=== PATIENT | male | born 1940 | race Caucasian/White ===

== ENCOUNTER 2021-01-20 20:44 | Observation (INO) ==
[2021-01-20] MEDS ORDERED: Aspirin 81 MG TAB.CHEW PO ONE (20:52)
[2021-01-20] MEDS ORDERED: Nitroglycerin 0.4 MG TAB.SUBL SL PRN (20:52)
[2021-01-21] MEDS ORDERED: Naloxone 0.4 MG/ML INJ IVP PRN (00:04)
[2021-01-21] MEDS ORDERED: Perflutren Lipid Microsphere 1.3 ML in 0.9 % Sodium Chloride 8.7 ML IVP PRN (00:08)
[2021-01-21] MEDS ORDERED: D5% in Water 1,000 ML IVC PRN (00:10)
[2021-01-21] MEDS ORDERED: *HR* Dextrose 50 % in Water (Vial) 50 ML VIAL IVP PRN (00:10)
[2021-01-21] MEDS ORDERED: Dextrose Gel 15 GM/37.5 ML TUBE PO PRN ×2 (00:10)
[2021-01-21] MEDS: Ondansetron 4 MG/2 ML VIAL IVP PRN ×2 (02:04→14:50)
[2021-01-21 07:01] LABS: Basophils # 0.1 K/mcL (0.0-0.2); Basophils % 0.8 %; Eosinophils # 0.1 K/mcL (0.0-0.6); Hematocrit 38.2 % (37.5-50.1); Hemoglobin 12.4 g/dL (12.9-16.9); Immature Granulocytes % 0.3 % (0-4); Lymphocytes # 0.5 K/mcL (0.6-4.6); Lymphocytes % 8.3 %; Mean Corpuscular HGB Conc 32.5 g/dL (31.6-35.5); Mean Corpuscular Hemoglobin 28.9 pg (28.0-33.3); Monocytes # 0.4 K/mcL (0.0-1.3); Monocytes % 6.5 %; Neutrophils # 5.1 K/mcL (1.6-8.9); Platelet Count 142 K/mcL (140-400); Red Blood Count 4.29 M/mcL (4.19-5.50); Red Cell Distribution Width 12.3 % (11.5-14.5); Segmented Neutrophils % 83.1 %; White Blood Count 6.1 K/mcL (4.3-11.1)
[2021-01-21 07:19] LABS: BUN/Creatinine Ratio 18 (6-26); Blood Urea Nitrogen 21 mg/dL (8-23); Calcium 8.7 mg/dL (8.6-10.3); Carbon Dioxide 23 mEq/L (23-29); Chloride 101 mEq/L (98-107); Chol/HDL Ratio 5.7 (0-4.9); Cholesterol 193 mg/dL (< 200); Glucose 311 mg/dL (70-105); HDL Cholesterol 34 mg/dL (40-59); LDL Cholesterol,Calculated 115 mg/dL (< 100); Osmolality,Calculated 289 (280-300); Potassium 4.4 mEq/L (3.5-5.1); Sodium 132 mEq/L (136-145); Triglycerides 219 mg/dL (< 150); Troponin I < 0.03 ng/mL (< 0.04); eGFR For African Americans > 60 (> 60); eGFR For Non-African Americans > 60 (> 60)
[2021-01-21] MEDS: Insulin LISPRO 300 UNITS/3 ML VIAL SUBQ SCH ×3 (08:26→17:09)
[2021-01-21] MEDS: Aspirin 81 MG TAB.CHEW PO SCH (08:26)
[2021-01-21] MEDS: lisinopriL 5 MG TABLET PO SCH (08:26)
[2021-01-21 09:15] LABS: Estimated Average Glucose 358 mg/dl; Hemoglobin A1C 14.1 %
[2021-01-21 15:20] LABS: Folate 19.9 ng/mL (3.0-16.0)
[2021-01-21] MEDS ORDERED: Insulin LISPRO 300 UNITS/3 ML VIAL SUBQ SCH (21:00)
[2021-01-22 02:56] LABS: BUN/Creatinine Ratio 20 (6-26); Blood Urea Nitrogen 24 mg/dL (8-23); Calcium 8.6 mg/dL (8.6-10.3); Carbon Dioxide 25 mEq/L (23-29); Chloride 104 mEq/L (98-107); Glucose 207 mg/dL (70-105); Osmolality,Calculated 292 (280-300); Potassium 3.9 mEq/L (3.5-5.1); Sodium 136 mEq/L (136-145); eGFR For African Americans > 60 (> 60); eGFR For Non-African Americans 60 (> 60)
[2021-01-22] MEDS: Insulin LISPRO 300 UNITS/3 ML VIAL SUBQ SCH (09:51)
[2021-01-22] MEDS: lisinopriL 5 MG TABLET PO SCH (09:52)
[2021-01-22] MEDS: Aspirin 81 MG TAB.CHEW PO SCH (09:52)
[2021-01-22] MEDS ORDERED: Sennosides/Docusate Sodium TABLET PO PRN (10:34)
[2021-01-22 11:24] VITALS: BP 102/62
[2021-01-22 11:46] LABS: Bilirubin,Urine Negative (Negative); Blood,Urine Negative (Negative); Clarity,Urine Clear (Clear); Color,Urine Light-Yellow (Yellow); Glucose,Urine (UA) >=1000 mg/dL (Normal); Ketones,Urine Negative (Negative); Leukocyte Esterase,Urine Negative (Negative); Nitrite,Urine Negative (Negative); Protein,Urine Trace mg/dL (Neg-Trace); Specific Gravity,Urine 1.023 (1.010-1.025); Urobilinogen,Urine Normal (Normal)
[2021-01-22 11:48] LABS: Amphetamine Screen,Urine Negative ng/mL (Cutoff=1000); Barbiturate Screen,Urine Negative ng/mL (Cutoff=200); Benzodiazepines Screen,Urine Negative ng/mL (Cutoff=200); Cannabinoid Screen,Urine Negative ng/mL (Cutoff = 50); Cocaine Screen,Urine Negative ng/mL (Cutoff= 300); Opiate Screen,Urine Negative ng/mL (Cutoff=300); Phencyclidine Screen,Urine Negative ng/mL (Cutoff=25)
== END 2021-01-22 11:15 | disposition home or self-care (01) ==
LOC: EMEROOARM 20:44 → 2ANU 20:44 → SUATTDRO 23:17 → 2ANU 01-21 00:07
PROVIDERS: ADMIT Family Medicine; ATTEND Student in an Organized Health Care Education/Training Program

== ENCOUNTER 2021-11-11 16:05 | Inpatient (IN) ==
[2021-11-11 18:10] LABS: Basophils # 0.1 K/mcL (0.0-0.2); Basophils % 0.5 %; Eosinophils # 0.1 K/mcL (0.0-0.6); Eosinophils % 1.2 %; Hematocrit 36.4 % (37.5-50.1); Hemoglobin 11.8 g/dL (12.9-16.9); Immature Granulocytes % 0.4 % (0-4); Lymphocytes # 0.6 K/mcL (0.6-4.6); Lymphocytes % 6.5 %; Mean Corpuscular HGB Conc 32.4 g/dL (31.6-35.5); Mean Corpuscular Hemoglobin 29.1 pg (28.0-33.3); Mean Corpuscular Volume 89.7 fL (83.0-100.0); Mean Platelet Volume 9.5 fL (9.4-12.4); Monocytes # 0.5 K/mcL (0.0-1.3); Monocytes % 5.8 %; Platelet Count 235 K/mcL (140-400); Red Blood Count 4.06 M/mcL (4.19-5.50); Red Cell Distribution Width 13.2 % (11.5-14.5); Segmented Neutrophils % 85.6 %; White Blood Count 9.3 K/mcL (4.3-11.1)
[2021-11-11 18:17] LABS: Prothrombin Time 11.5 Seconds (9.4-12.1)
[2021-11-11 18:20] LABS: Activated Partial Thrombo Time 33.6 Seconds (26.0-36.0)
[2021-11-11 18:30] LABS: BUN/Creatinine Ratio 22 (6-26); Blood Urea Nitrogen 28 mg/dL (8-23); Calcium 9.3 mg/dL (8.6-10.3); Carbon Dioxide 28 mEq/L (23-29); Chloride 101 mEq/L (98-107); Glucose 164 mg/dL (70-105); Osmolality,Calculated 295 (280-300); Potassium 4.6 mEq/L (3.5-5.1); Sodium 138 mEq/L (136-145); eGFR For African Americans > 60 (> 60); eGFR For Non-African Americans 54 (> 60)
[2021-11-11] MEDS ORDERED: Naloxone 0.4 MG/ML INJ IVP PRN (18:32)
[2021-11-11] MEDS ORDERED: D5% in Water 1,000 ML IVC PRN (18:50)
[2021-11-11] MEDS ORDERED: Dextrose 4 GM Chewable Tablets PO PRN ×2 (18:50)
[2021-11-11] MEDS ORDERED: *HR* Dextrose 50 % in Water (Syg) 50 ML SYRINGE IVP PRN (18:50)
[2021-11-11] MEDS ORDERED: *HR* LORazepam 2 MG/ML VIAL IVP ONE (18:52)
[2021-11-11] MEDS ORDERED: 0.9 % Sodium Chloride 1,000 ML IVC SCH (22:00)
[2021-11-12] MEDS: Insulin LISPRO 300 UNITS/3 ML VIAL SUBQ SCH ×4 (01:01→18:18)
[2021-11-12 01:32] LABS: Bilirubin,Urine Negative (Negative); Blood,Urine Small (Negative); Clarity,Urine Clear (Clear); Color,Urine Light-Yellow (Yellow); Glucose,Urine (UA) >=1000 mg/dL (Normal); Ketones,Urine Negative (Negative); Leukocyte Esterase,Urine Negative (Negative); Nitrite,Urine Negative (Negative); PH,Urine 6.5 pH Units (5.0-8.0); Protein,Urine Trace mg/dL (Neg-Trace); RBC,Urine 15-30 per hpf (0-3); Squamous Epithelial Cell,Urine Few per hpf (None-Few); Urobilinogen,Urine Normal (Normal); WBC,Urine 0-3 per hpf (0-3)
[2021-11-12 03:59] LABS: Hematocrit 36.2 % (37.5-50.1); Hemoglobin 11.6 g/dL (12.9-16.9); Mean Corpuscular Volume 90.5 fL (83.0-100.0); Mean Platelet Volume 9.7 fL (9.4-12.4); Platelet Count 224 K/mcL (140-400); Red Cell Distribution Width 13.2 % (11.5-14.5); White Blood Count 9.4 K/mcL (4.3-11.1)
[2021-11-12 04:08] LABS: BUN/Creatinine Ratio 21 (6-26); Blood Urea Nitrogen 25 mg/dL (8-23); Calcium 9.2 mg/dL (8.6-10.3); Carbon Dioxide 27 mEq/L (23-29); Chloride 106 mEq/L (98-107); Glucose 221 mg/dL (70-105); Magnesium 1.6 mg/dL (1.6-2.6); Osmolality,Calculated 301 (280-300); Phosphorous 2.7 mg/dL (2.7-4.5); Potassium 4.8 mEq/L (3.5-5.1); Sodium 140 mEq/L (136-145); eGFR For African Americans > 60 (> 60); eGFR For Non-African Americans 58 (> 60)
[2021-11-12 04:11] LABS: INR 1.1; Prothrombin Time 12.4 Seconds (9.4-12.1)
[2021-11-12 04:13] LABS: Activated Partial Thrombo Time 31.5 Seconds (26.0-36.0)
[2021-11-12] MEDS: Multivit/Ca/Min/Fe/FA 1 TAB TABLET PO SCH (09:01)
[2021-11-12] MEDS: Chlorhexidine Rinse 15 ML MOUTHWASH MM SCH ×2 (10:25→21:19)
[2021-11-12] MEDS ORDERED: Ondansetron 4 MG/2 ML VIAL ONE (12:41)
[2021-11-12] MEDS ORDERED: *HR* FentaNYL (PF) 100 MCG/2 ML VIAL ONE (12:41)
[2021-11-12] MEDS ORDERED: Lidocaine HCL 4 ML Topical Solution (Laryng-O-Jet Kit Sterile Pak) TP ONE (12:41)
[2021-11-12] MEDS ORDERED: *HR* Propofol 200 MG/20 ML VIAL IVP ONE (12:41)
[2021-11-12] MEDS ORDERED: Lidocaine -MPF 2% 5 ML VIAL ONE (12:41)
[2021-11-12] MEDS ORDERED: *HR* Rocuronium Bromide 50 MG/5 ML VIAL ONE (12:41)
[2021-11-12] MEDS ORDERED: Acetaminophen IV 1,000 MG/100 ML BAG IVPB ONE (12:57)
[2021-11-12] MEDS ORDERED: Famotidine 20 MG/2 ML VIAL IVP ONE (12:57)
[2021-11-12] MEDS ORDERED: CeFAZolin Syr 2,000MG/20 ML 2,000 MG/20 ML SYRINGE IVPB ONE (13:14)
[2021-11-12] MEDS ORDERED: *HR* OxyCODONE Immed Rel 5 MG TABLET PO PRN (14:34)
[2021-11-12] MEDS ORDERED: Morphine Sulfate 2 MG/ML SYRINGE IVP PRN (14:34)
[2021-11-12] MEDS ORDERED: Ondansetron 4 MG/2 ML VIAL IVP PRN (14:34)
[2021-11-12] MEDS ORDERED: *HR* LORazepam 2 MG/ML VIAL IVP ONE (18:00)
[2021-11-12] MEDS ORDERED: Haloperidol Lactate 5 MG/ML VIAL IVP ONE (19:10)
[2021-11-12] MEDS: Ringers Solution, Lactated 1,000 ML IVC SCH (19:23)
[2021-11-12] MEDS: CeFAZolin 2 GM/100 ML BAG IVPB SCH (21:18)
[2021-11-12] MEDS: QUEtiapine Fumarate 25 MG TABLET PO SCH (22:01)
[2021-11-13] MEDS: Insulin LISPRO 300 UNITS/3 ML VIAL SUBQ SCH ×4 (00:16→18:21)
[2021-11-13] MEDS: CeFAZolin 2 GM/100 ML BAG IVPB SCH (05:39)
[2021-11-13] MEDS: *HR* Enoxaparin 40 MG/0.4 ML SYRINGE SQ SCH (05:39)
[2021-11-13 05:47] LABS: Hematocrit 31.9 % (37.5-50.1); Hemoglobin 10.4 g/dL (12.9-16.9); Mean Corpuscular HGB Conc 32.6 g/dL (31.6-35.5); Mean Corpuscular Hemoglobin 29.5 pg (28.0-33.3); Mean Corpuscular Volume 90.4 fL (83.0-100.0); Platelet Count 213 K/mcL (140-400); Red Blood Count 3.53 M/mcL (4.19-5.50); Red Cell Distribution Width 13.2 % (11.5-14.5); White Blood Count 10.1 K/mcL (4.3-11.1)
[2021-11-13] MEDS: Multivit/Ca/Min/Fe/FA 1 TAB TABLET PO SCH (07:56)
[2021-11-13] MEDS: Chlorhexidine Rinse 15 ML MOUTHWASH MM SCH ×2 (07:56→19:58)
[2021-11-13] MEDS: QUEtiapine Fumarate 25 MG TABLET PO SCH (19:57)
[2021-11-13] MEDS ORDERED: Ondansetron 4 MG/2 ML VIAL IVP PRN (21:24)
[2021-11-13] MEDS ORDERED: Pantoprazole 40 MG VIAL IVP ONE (21:30)
[2021-11-13 21:58] LABS: Hematocrit 32.6 % (37.5-50.1); Hemoglobin 10.5 g/dL (12.9-16.9)
[2021-11-14 02:29] LABS: Hematocrit 31.2 % (37.5-50.1); Mean Corpuscular HGB Conc 32.1 g/dL (31.6-35.5); Mean Corpuscular Hemoglobin 29.6 pg (28.0-33.3); Mean Corpuscular Volume 92.3 fL (83.0-100.0); Platelet Count 220 K/mcL (140-400); Red Blood Count 3.38 M/mcL (4.19-5.50); Red Cell Distribution Width 13.1 % (11.5-14.5)
[2021-11-14 02:38] LABS: BUN/Creatinine Ratio 23 (6-26); Blood Urea Nitrogen 23 mg/dL (8-23); Carbon Dioxide 25 mEq/L (23-29); Chloride 102 mEq/L (98-107); Glucose 235 mg/dL (70-105); Osmolality,Calculated 295 (280-300); Potassium 4.5 mEq/L (3.5-5.1); Sodium 137 mEq/L (136-145); eGFR For African Americans > 60 (> 60); eGFR For Non-African Americans > 60 (> 60)
[2021-11-14] MEDS: *HR* Enoxaparin 40 MG/0.4 ML SYRINGE SQ SCH (07:10)
[2021-11-14] MEDS: Multivit/Ca/Min/Fe/FA 1 TAB TABLET PO SCH (10:42)
[2021-11-14] MEDS: Chlorhexidine Rinse 15 ML MOUTHWASH MM SCH ×2 (10:43→20:20)
[2021-11-14] MEDS: Insulin LISPRO 300 UNITS/3 ML VIAL SUBQ SCH ×4 (10:43→19:30)
[2021-11-14] MEDS ORDERED: Ketorolac 30 MG/ML VIAL IVP ONE (15:23)
[2021-11-14] MEDS: Ringers Solution, Lactated 1,000 ML IVC SCH (19:30)
[2021-11-14] MEDS: Melatonin 3 MG TABLET PO PRN (20:20)
[2021-11-14] MEDS: QUEtiapine Fumarate 25 MG TABLET PO SCH (20:20)
[2021-11-15] MEDS: Insulin LISPRO 300 UNITS/3 ML VIAL SUBQ SCH ×4 (00:07→16:54)
[2021-11-15] MEDS: *HR* Enoxaparin 40 MG/0.4 ML SYRINGE SQ SCH (05:58)
[2021-11-15] MEDS: Chlorhexidine Rinse 15 ML MOUTHWASH MM SCH ×2 (09:24→20:57)
[2021-11-15] MEDS: Multivit/Ca/Min/Fe/FA 1 TAB TABLET PO SCH (09:24)
[2021-11-15] MEDS: Ringers Solution, Lactated 1,000 ML IVC SCH (12:25)
[2021-11-15] MEDS ORDERED: Acetaminophen IV 1,000 MG/100 ML BAG IVPB ONE (13:15)
[2021-11-15] MEDS ORDERED: Haloperidol Lactate 5 MG/ML VIAL IVP ONE (17:32)
[2021-11-15] MEDS ORDERED: Ketorolac 30 MG/ML VIAL IVP ONE (18:05)
[2021-11-15] MEDS: Melatonin 3 MG TABLET PO PRN (20:57)
[2021-11-15] MEDS: QUEtiapine Fumarate 25 MG TABLET PO SCH (20:57)
[2021-11-15] MEDS: Sennosides/Docusate Sodium TABLET PO SCH ×2 (20:57→21:30)
[2021-11-15] MEDS ORDERED: Famotidine 20 MG TABLET PO SCH (21:00)
[2021-11-16] MEDS: Insulin LISPRO 300 UNITS/3 ML VIAL SUBQ SCH ×4 (00:16→18:13)
[2021-11-16 05:29] LABS: Basophils # 0.1 K/mcL (0.0-0.2); Eosinophils # 0.5 K/mcL (0.0-0.6); Eosinophils % 9.1 %; Hematocrit 24.8 % (37.5-50.1); Lymphocytes % 18.7 %; Mean Corpuscular HGB Conc 33.1 g/dL (31.6-35.5); Mean Corpuscular Hemoglobin 28.9 pg (28.0-33.3); Mean Corpuscular Volume 87.3 fL (83.0-100.0); Mean Platelet Volume 9.9 fL (9.4-12.4); Monocytes # 0.6 K/mcL (0.0-1.3); Monocytes % 10.8 %; Platelet Count 194 K/mcL (140-400); Red Blood Count 2.84 M/mcL (4.19-5.50); Red Cell Distribution Width 12.6 % (11.5-14.5); Segmented Neutrophils % 59.4 %
[2021-11-16 05:39] LABS: Hemoglobin 8.2 g/dL (12.9-16.9); White Blood Count 5.1 K/mcL (4.3-11.1)
[2021-11-16] MEDS: *HR* Enoxaparin 40 MG/0.4 ML SYRINGE SQ SCH (05:54)
[2021-11-16 05:57] LABS: BUN/Creatinine Ratio 31 (6-26); Blood Urea Nitrogen 37 mg/dL (8-23); Calcium 8.7 mg/dL (8.6-10.3); Carbon Dioxide 26 mEq/L (23-29); Chloride 101 mEq/L (98-107); Magnesium 1.8 mg/dL (1.6-2.6); Potassium 3.7 mEq/L (3.5-5.1); Sodium 137 mEq/L (136-145); eGFR For African Americans > 60 (> 60); eGFR For Non-African Americans 58 (> 60)
[2021-11-16 06:03] LABS: Thyroid Stimulating Hormone 0.447 mcIU/mL (0.340-5.600)
[2021-11-16] MEDS ORDERED: Pantoprazole 40 MG VIAL IVP ONE (07:24)
[2021-11-16 08:47] LABS: Glucose 94 mg/dL (70-105); Osmolality,Calculated 292 (280-300)
[2021-11-16] MEDS: Chlorhexidine Rinse 15 ML MOUTHWASH MM SCH ×2 (09:06→20:04)
[2021-11-16] MEDS: QUEtiapine Fumarate 25 MG TABLET PO SCH ×2 (09:06→19:56)
[2021-11-16] MEDS: Sennosides/Docusate Sodium TABLET PO SCH ×2 (09:16→19:57)
[2021-11-16] MEDS: Multivit/Ca/Min/Fe/FA 1 TAB TABLET PO SCH (09:17)
[2021-11-16] MEDS: Famotidine 20 MG TABLET PO SCH (09:22)
[2021-11-16 11:16] LABS: Estimated Average Glucose 163 mg/dl; Hemoglobin A1C 7.3 %
[2021-11-16] MEDS: Ringers Solution, Lactated 1,000 ML IVC SCH (13:00)
[2021-11-17] MEDS: Insulin LISPRO 300 UNITS/3 ML VIAL SUBQ SCH ×3 (02:05→14:20)
[2021-11-17] MEDS: *HR* Enoxaparin 40 MG/0.4 ML SYRINGE SQ SCH (05:45)
[2021-11-17 06:32] LABS: Basophils # 0.1 K/mcL (0.0-0.2); Basophils % 1.9 %; Eosinophils # 0.4 K/mcL (0.0-0.6); Eosinophils % 7.5 %; Hemoglobin 9.1 g/dL (12.9-16.9); Immature Granulocytes % 1.1 % (0-4); Lymphocytes % 21.1 %; Mean Corpuscular HGB Conc 32.5 g/dL (31.6-35.5); Mean Corpuscular Hemoglobin 29.5 pg (28.0-33.3); Mean Corpuscular Volume 90.9 fL (83.0-100.0); Mean Platelet Volume 9.5 fL (9.4-12.4); Monocytes # 0.5 K/mcL (0.0-1.3); Monocytes % 11.3 %; Neutrophils # 2.7 K/mcL (1.6-8.9); Platelet Count 217 K/mcL (140-400); Red Blood Count 3.08 M/mcL (4.19-5.50); Red Cell Distribution Width 12.9 % (11.5-14.5); Segmented Neutrophils % 57.1 %; White Blood Count 4.7 K/mcL (4.3-11.1)
[2021-11-17 06:59] LABS: BUN/Creatinine Ratio 22 (6-26); Blood Urea Nitrogen 23 mg/dL (8-23); Calcium 8.7 mg/dL (8.6-10.3); Carbon Dioxide 24 mEq/L (23-29); Chloride 103 mEq/L (98-107); Glucose 191 mg/dL (70-105); Magnesium 1.8 mg/dL (1.6-2.6); Osmolality,Calculated 291 (280-300); Potassium 4.1 mEq/L (3.5-5.1); Sodium 136 mEq/L (136-145); eGFR For African Americans > 60 (> 60); eGFR For Non-African Americans > 60 (> 60)
[2021-11-17] MEDS ORDERED: polyethylene glycoL 3350 17 GM POWD.PACK PO SCH (09:00)
[2021-11-17] MEDS: Multivit/Ca/Min/Fe/FA 1 TAB TABLET PO SCH (09:11)
[2021-11-17] MEDS: QUEtiapine Fumarate 25 MG TABLET PO SCH (09:11)
[2021-11-17] MEDS: Sennosides/Docusate Sodium TABLET PO SCH (09:12)
[2021-11-17] MEDS: Famotidine 20 MG TABLET PO SCH (09:13)
[2021-11-17] MEDS: Chlorhexidine Rinse 15 ML MOUTHWASH MM SCH (09:13)
[2021-11-17 11:39] VITALS: BP 166/75; PULSE 83; TEMP 97.6; O2SAT 95
[2021-11-17] MEDS ORDERED: Ketorolac 30 MG/ML VIAL IVP ONE (14:25)
[2021-11-17 14:59] LABS: Adenovirus Not Detected (Not Detect); Bordetella Pertussis Not Detected (Not Detect); Chlamydophila pneumoniae Not Detected (Not Detect); Coronavirus 229E Not Detected (Not Detect); Coronavirus HKU1 Not Detected (Not Detect); Coronavirus NL63 Not Detected (Not Detect); Coronavirus OC43 Not Detected (Not Detect); Human Metapneumovirus Not Detected (Not Detect); Human Rhinovirus/Enterovirus Not Detected (Not Detect); Influenza A Subtype 2009 H1 Not Detected (Not Detect); Influenza B Not Detected (Not Detect); Mycoplasma pneumoniae Not Detected (Not Detect); Parainfluenza Virus 1 Not Detected (Not Detect); Parainfluenza Virus 2 Not Detected (Not Detect); Parainfluenza Virus 3 Not Detected (Not Detect); Parainfluenza Virus 4 Not Detected (Not Detect); Respiratory Syncytial Virus Not Detected (Not Detect); SARS-CoV-2 Not Detected (Not Detect)
[2021-11-17] MEDS: Ringers Solution, Lactated 1,000 ML IVC SCH (15:14)
== END 2021-11-17 15:50 | DRG 480 ==
LOC: EMEROOARM 16:05 → 4WAOSI 16:05 → SUATTDRO 19:15 → 4WAOSI 20:33
PROVIDERS: ADMIT Internal Medicine; ATTEND Pharmacist

== ENCOUNTER 2022-03-09 07:41 | Inpatient (IN) ==
[2022-03-09] MEDS ORDERED: Iopamidol - 370 500 ML MLS IVP ONE (07:49)
[2022-03-09 08:19] LABS: Basophils % 0.5 %; Eosinophils % 0.2 %; Red Cell Distribution Width 14.4 % (11.5-14.5)
[2022-03-09 08:20] LABS: Basophils # 0.1 K/mcL (0.0-0.2); Hemoglobin 6.5 g/dL (12.9-16.9); Immature Granulocytes % 0.4 % (0-4); Lymphocytes # 0.9 K/mcL (0.6-4.6); Lymphocytes % 8.2 %; Mean Corpuscular HGB Conc 28.3 g/dL (31.6-35.5); Mean Corpuscular Hemoglobin 23.6 pg (28.0-33.3); Mean Corpuscular Volume 83.3 fL (83.0-100.0); Mean Platelet Volume 9.9 fL (9.4-12.4); Monocytes # 0.6 K/mcL (0.0-1.3); Monocytes % 5.8 %; Platelet Count 401 K/mcL (140-400); Red Blood Count 2.76 M/mcL (4.19-5.50); Segmented Neutrophils % 84.9 %; White Blood Count 10.6 K/mcL (4.3-11.1)
[2022-03-09 08:26] LABS: INR 1.2; Prothrombin Time 13.9 Seconds (9.4-12.1)
[2022-03-09] MEDS ORDERED: 0.9 % Sodium Chloride 500 ML IVC ONE (08:36)
[2022-03-09 08:40] LABS: BUN/Creatinine Ratio 27 (6-26); Blood Urea Nitrogen 34 mg/dL (8-23); Calcium 8.8 mg/dL (8.6-10.3); Carbon Dioxide 22 mEq/L (23-29); Chloride 107 mEq/L (98-107); Glucose 275 mg/dL (70-105); Osmolality,Calculated 311 (280-300); Potassium 4.3 mEq/L (3.5-5.1); Sodium 142 mEq/L (136-145); eGFR For African Americans > 60 (> 60); eGFR For Non-African Americans 56 (> 60)
[2022-03-09 08:41] LABS: Troponin I < 0.03 ng/mL (< 0.04)
[2022-03-09 09:03] LABS: Influenza A PCR Negative (Negative); Influenza B PCR Negative (Negative); Resp. Syncytial Virus PCR Negative (Negative)
[2022-03-09 09:04] LABS: SARS-CoV-2 by PCR (In House) Negative (Negative)
[2022-03-09 10:11] LABS: Platelet Estimate Increased (Normal)
[2022-03-09 10:12] LABS: Anisocytosis 1+ (Not Present); Hypochromasia Present (Not Present); Poikilocytosis 1+ (Not Present)
[2022-03-09] MEDS ORDERED: Dextrose Gel 15 GM/37.5 ML TUBE PO PRN ×2 (11:13)
[2022-03-09] MEDS ORDERED: Naloxone 0.4 MG/ML INJ IVP PRN (11:13)
[2022-03-09] MEDS ORDERED: D5% in Water 1,000 ML IVC PRN (11:13)
[2022-03-09] MEDS ORDERED: Ondansetron 4 MG/2 ML VIAL IVP PRN (11:13)
[2022-03-09] MEDS ORDERED: *HR* Dextrose 50 % in Water (Syg) 50 ML SYRINGE IVP PRN (11:13)
[2022-03-09] MEDS ORDERED: 0.9 % Sodium Chloride 250 ML ONE (12:11)
[2022-03-09] MEDS: Ringers Solution, Lactated 1,000 ML IVC SCH (15:03)
[2022-03-09] MEDS: Insulin LISPRO 300 UNITS/3 ML VIAL SUBQ SCH ×2 (15:03→18:49)
[2022-03-09] MEDS: Pantoprazole 40 MG VIAL IVP SCH (17:14)
[2022-03-09] MEDS ORDERED: *HR* LORazepam 1 MG TABLET PO PRN (22:40)
[2022-03-09] MEDS ORDERED: Haloperidol Lactate 5 MG/ML VIAL IM PRN (22:40)
[2022-03-10] MEDS: OLANZapine 5 MG TAB.RAPDIS PO SCH ×2 (01:06→20:43)
[2022-03-10] MEDS: haloperidoL 1 MG TABLET PO SCH ×8 (01:06→22:56)
[2022-03-10] MEDS: Insulin LISPRO 300 UNITS/3 ML VIAL SUBQ SCH ×5 (01:40→22:59)
[2022-03-10 02:03] LABS: Immature Granulocytes % 0.7 % (0-4); Red Cell Distribution Width 14.6 % (11.5-14.5)
[2022-03-10 02:08] LABS: Basophils # 0.1 K/mcL (0.0-0.2); Basophils % 0.5 %; Eosinophils # 0.1 K/mcL (0.0-0.6); Eosinophils % 0.7 %; Hemoglobin 7.2 g/dL (12.9-16.9); Lymphocytes # 1.3 K/mcL (0.6-4.6); Lymphocytes % 12.9 %; Mean Corpuscular HGB Conc 32.7 g/dL (31.6-35.5); Mean Corpuscular Hemoglobin 25.7 pg (28.0-33.3); Mean Corpuscular Volume 78.6 fL (83.0-100.0); Mean Platelet Volume 10.8 fL (9.4-12.4); Monocytes # 1.1 K/mcL (0.0-1.3); Monocytes % 10.8 %; Neutrophils # 7.5 K/mcL (1.6-8.9); Nucleated Red Blood Cells 0.3 /100 WBC (0); Platelet Count 305 K/mcL (140-400); Segmented Neutrophils % 74.4 %; White Blood Count 10.1 K/mcL (4.3-11.1)
[2022-03-10 02:15] LABS: Alanine Aminotransferase 7 Units/L (7-52); Albumin 2.8 g/dL (3.5-5.7); Albumin/Globulin Ratio 1.5 (1.1-2.2); Alkaline Phosphatase 41 Units/L (34-104); Aspartate Amino Transferase 13 Units/L (13-39); BUN/Creatinine Ratio 45 (6-26); Bilirubin,Total 0.7 mg/dL (0.3-1.0); Blood Urea Nitrogen 45 mg/dL (8-23); Calcium 8.1 mg/dL (8.6-10.3); Carbon Dioxide 19 mEq/L (23-29); Chloride 117 mEq/L (98-107); Glucose 220 mg/dL (70-105); Osmolality,Calculated 314 (280-300); Potassium 4.7 mEq/L (3.5-5.1); Sodium 143 mEq/L (136-145); Total Protein 4.7 g/dL (6.4-8.9); eGFR For African Americans > 60 (> 60); eGFR For Non-African Americans > 60 (> 60)
[2022-03-10 02:16] LABS: Globulin 1.9 g/dL (2.4-3.5)
[2022-03-10 02:37] LABS: Hypochromasia Present (Not Present); Platelet Clumps Few (Not Present); Platelet Estimate Normal (Normal); Polychromasia 1+ (Not Present)
[2022-03-10 02:38] LABS: Anisocytosis 1+ (Not Present); Microcytosis Present (Not Present)
[2022-03-10] MEDS ORDERED: 0.9 % Sodium Chloride 250 ML ONE (03:31)
[2022-03-10] MEDS: Ringers Solution, Lactated 1,000 ML IVC SCH (04:47)
[2022-03-10] MEDS: Pantoprazole 40 MG VIAL IVP SCH ×2 (06:17→18:34)
[2022-03-10] MEDS ORDERED: *HR* Succinylcholine 200 MG/10 ML VIAL IVP ONE (07:40)
[2022-03-10] MEDS ORDERED: Lidocaine HCL 4 ML Topical Solution (Laryng-O-Jet Kit Sterile Pak) TP ONE (07:40)
[2022-03-10] MEDS ORDERED: Ondansetron 4 MG/2 ML VIAL ONE (07:40)
[2022-03-10] MEDS ORDERED: Lidocaine -MPF 2% 5 ML VIAL ONE (07:40)
[2022-03-10] MEDS ORDERED: *HR* Propofol 200 MG/20 ML VIAL IVP ONE (07:41)
[2022-03-10] MEDS ORDERED: *HR* FentaNYL (PF) 100 MCG/2 ML VIAL ONE (09:54)
[2022-03-10] MEDS: ALOGLIPTIN BENZOATE 12.5 MG PO SCH (10:07)
[2022-03-10] MEDS: Cholecalciferol (D-3) 1,000 UNIT (25MCG) TABLET PO SCH ×2 (11:20→11:33)
[2022-03-10 16:10] LABS: Hematocrit 37.4 % (37.5-50.1); Hemoglobin 10.4 g/dL (12.9-16.9)
[2022-03-10] MEDS: Melatonin 3 MG TABLET PO SCH (20:43)
[2022-03-11] MEDS: haloperidoL 1 MG TABLET PO SCH ×6 (03:53→18:03)
[2022-03-11] MEDS: Pantoprazole 40 MG VIAL IVP SCH ×2 (06:23→18:03)
[2022-03-11 07:22] LABS: Hematocrit 24.2 % (37.5-50.1); Hemoglobin 7.5 g/dL (12.9-16.9); Mean Corpuscular Hemoglobin 25.6 pg (28.0-33.3); Mean Corpuscular Volume 82.6 fL (83.0-100.0); Mean Platelet Volume 10.3 fL (9.4-12.4); Platelet Count 246 K/mcL (140-400); Red Blood Count 2.93 M/mcL (4.19-5.50); Red Cell Distribution Width 14.6 % (11.5-14.5); White Blood Count 5.1 K/mcL (4.3-11.1)
[2022-03-11 07:40] LABS: BUN/Creatinine Ratio 27 (6-26); Blood Urea Nitrogen 28 mg/dL (8-23); Calcium 8.5 mg/dL (8.6-10.3); Carbon Dioxide 23 mEq/L (23-29); Chloride 111 mEq/L (98-107); Glucose 157 mg/dL (70-105); Osmolality,Calculated 299 (280-300); Potassium 4.2 mEq/L (3.5-5.1); Sodium 140 mEq/L (136-145); eGFR For African Americans > 60 (> 60); eGFR For Non-African Americans > 60 (> 60)
[2022-03-11] MEDS: Insulin LISPRO 300 UNITS/3 ML VIAL SUBQ SCH ×4 (10:37→20:32)
[2022-03-11] MEDS: ALOGLIPTIN BENZOATE 12.5 MG PO SCH (11:02)
[2022-03-11] MEDS: Cholecalciferol (D-3) 1,000 UNIT (25MCG) TABLET PO SCH (11:08)
[2022-03-11] MEDS: OLANZapine 5 MG TAB.RAPDIS PO SCH (20:33)
[2022-03-11] MEDS: Melatonin 3 MG TABLET PO SCH (20:33)
[2022-03-12] MEDS: Pantoprazole 40 MG VIAL IVP SCH (05:32)
[2022-03-12] MEDS: haloperidoL 1 MG TABLET PO SCH ×4 (05:33→11:10)
[2022-03-12 09:09] LABS: Hematocrit 25.4 % (37.5-50.1)
[2022-03-12] MEDS: Insulin LISPRO 300 UNITS/3 ML VIAL SUBQ SCH (09:54)
[2022-03-12] MEDS: Cholecalciferol (D-3) 1,000 UNIT (25MCG) TABLET PO SCH ×2 (09:54→11:13)
[2022-03-12] MEDS: ALOGLIPTIN BENZOATE 12.5 MG PO SCH (09:55)
[2022-03-12 10:50] VITALS: BP 137/65; PULSE 101; TEMP 98.8; O2SAT 96
[2022-03-12 11:14] LABS: Influenza A PCR Negative (Negative); Influenza B PCR Negative (Negative); Resp. Syncytial Virus PCR Negative (Negative)
[2022-03-12 11:31] LABS: SARS-CoV-2 by PCR (In House) Negative (Negative)
== END 2022-03-12 12:15 | DRG 368 ==
LOC: EMEROOARM 07:41 → 3ANU 07:41 → SUATTDRO 10:21 → 3ANU 11:24
PROVIDERS: ADMIT Family Medicine; ATTEND Internal Medicine
PROC: ENDOEBX (2022-03-10 08:00)